=== PATIENT | male | born 1985 | race American Indian/Alaskan Native ===

== ENCOUNTER 2017-01-29 18:52 | Emergency (ER) | payer SELFPAY ==
--- NOTE | 2017-01-30 00:42 | Emergency Department Report ---
HPI - General Chief Complaint: Back Pain/Injury Time Seen by Provider: 01/30/17 00:18 - HPI HPI: 31-year-old male presents today complaining of lower back pain 1 month that has worsened 3 days ago. Patient states that he has history of similar symptoms and has been worked up for it, without abnormal imaging. Describes his pain as a 10 out of 10 sharp, throbbing pain. Patient states that it does radiate to his right hip. 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 Tried aspirin and ibuprofen without relief. Denies numbness, weakness, paresthesias. Denies bowel or bladder incontinence. Denies fever, chills, nausea, vomiting, chest pain, shortness of breath, abdominal pain. ED Past Medical Hx - Past Medical History Previous Medical History?: No - Surgical History Past Surgical History?: No - Social History Smoking Status: Never Smoker Substance Use Type: None - Medications Home Medications: Home Medications Medication Instructions Recorded Confirmed Last Taken Type Cyclobenzaprine [Flexeril] 10 mg PO TID PRN #15 tablet 01/30/17 Unknown Rx Naproxen [Naprosyn] 500 mg PO BID #20 tablet 01/30/17 Unknown Rx ED Review of Systems ROS: Stated complaint: BACK PAIN Other details as noted in HPI Constitutional: denies: chills, fever, malaise Eyes: denies: eye pain ENT: denies: ear pain, throat pain, congestion Respiratory: denies: cough, shortness of breath, wheezing Cardiovascular: denies: chest pain, palpitations Endocrine: no symptoms reported Gastrointestinal: denies: abdominal pain, nausea, vomiting Musculoskeletal: back pain Neurological: denies: headache, weakness, numbness, paresthesias Physical Exam - Physical Exam Vital Signs: Vital Signs 01/29/17 19:47 Temperature 98.1 F Pulse Rate 76 Respiratory 20 Rate Blood Pressure 151/82 [Right] O2 Sat by Pulse 97 Oximetry Physical Exam: GENERAL: The patient is well-developed and well-nourished. Patient is in NAD. HEAD: Normocephalic. Atraumatic. EYES: Extraocular motions are intact, PERRL. NECK: Supple, nontender, without lymphadenopathy. No meningitic signs are noted. CHEST/LUNGS: Clear to auscultation throughout. HEART/CARDIOVASCULAR: Regular rate and rhythm. No murmurs, rubs or gallops. ABDOMEN: Abdomen is soft, nontender. Bowel sounds normoactive. No guarding or rebound tenderness. EXTREMITIES: No cyanosis, clubbing or edema. Peripheral pulses intact. Capillary refill less than 2 seconds. BACK: Full ROM. Minimal midline tenderness of the lumbar region. Bilateral paraspinal tenderness of lumbar region. Tenderness to palpation of the right sciatic notch. Negative straight leg raise bilaterally. NEURO: Alert and oriented x 3. Normal gait. ED Course Vital Signs 01/29/17 19:47 Temperature 98.1 F Pulse Rate 76 Respiratory 20 Rate Blood Pressure 151/82 [Right] O2 Sat by Pulse 97 Oximetry ED Medical Decision Making - Lab Data Vital Signs 01/29/17 01/30/17 19:47 00:44 Temperature 98.1 F 98.3 F Pulse Rate 76 58 L Respiratory 20 18 Rate Blood Pressure 151/82 132/95 [Right] O2 Sat by Pulse 97 100 Oximetry - Medical Decision Making 31-year-old male presents today complaining of lower back pain that worsened 3 days ago. Patient has history of similar symptoms and has been worked up. Patient is in no acute distress at this time. He will be discharged home and is encouraged to follow up with a primary care provider. He will be sent home on Flexeril and naproxen and is encouraged to return to the emergency room for any worsening symptoms. Critical care attestation.: If time is entered above; I have spent that time in minutes in the direct care of this critically ill patient, excluding procedure time. ED Disposition Clinical Impression: Low back pain Qualifiers: Chronicity: acute Back pain laterality: bilateral Sciatica presence: with sciatica Sciatica laterality: sciatica of right side Qualified Code(s): M54.41 - Lumbago with sciatica, right side Disposition: - TO HOME OR SELFCARE Is pt being admited?: No Does the pt Need Aspirin: No Condition: Stable Instructions: Low Back Strain (ED), Sciatica (ED) Additional Instructions: Follow with primary care provider or orthopedic. Return to the emergency department if symptoms worsen. Prescriptions: Cyclobenzaprine [Flexeril] 10 mg PO TID PRN #15 tablet PRN Reason: Muscle Spasm Naproxen [Naprosyn] 500 mg PO BID #20 tablet Referrals: RENETTA FORDE MD [Primary Care Provider] - 3-5 Days ROWENA BROWN MD [Staff Physician] - 3-5 Days Forms: Work/School Release Form(ED) Time of Disposition: 00:49
[2017-01-30 00:45] VITALS: BP 132/95
== END 2017-01-30 01:02 | disposition home or self-care (01) ==
LOC: ED 18:52
DX: M54.5 Low back pain (principal)
CPT/HCPCS: 99282

== ENCOUNTER 2019-07-20 04:51 | Emergency (ER) | payer SELFPAY ==
[2019-07-20 04:57] VITALS: BP 142/95
[2019-07-20] MEDS ORDERED: DIPHtheria,PERTUSSIS(ACELL),TETANUS VACCINE/PF 0.5 ML VIAL IM ONE (05:19)
[2019-07-20] MEDS ORDERED: LIDOCAINE-MPF (1%) 10 MG/1 ML VIAL 5 ML INFILTRATI ONE (05:19)
[2019-07-20] MEDS ORDERED: HYDROcodone/ACETAMINOPHEN 5-325 MG TAB PO ONE (05:20)
--- NOTE | 2019-07-20 06:10 | Emergency Department Report ---
- General Chief Complaint: Laceration/Recheck/Suture Stated Complaint: RIGHT HAND CUT Time Seen by Provider: 07/20/19 05:14 Source: patient Mode of arrival: Ambulatory Limitations: No Limitations - History of Present Illness Initial Comments: Mr Alcocer is a 3 y/o aam who presents for right hand laceration , states he slipped and fell into hs bathroom mirror this am. cause him to cut his hand on ther mirrror. all bleeding is controlled via direct pressure. there is no numbness , no tingling, no paralysis, and no deformity,Last tetanus is unkown. pt states minimal pain of 2/10 exacerbated by palpation, Rom is intact and unrestricted. There are no foreign bodies noted or reported Onset/Timin -: hour(s) Extremity Location: Right: Hand Place: home Patient Tetanus UTD: No Context: accidental Associated Symptoms: pain - Related Data Previous Rx's Medication Instructions Recorded Last Taken Type Cyclobenzaprine [Flexeril] 10 mg PO TID PRN #15 tablet 01/30/17 Unknown Rx Naproxen [Naprosyn] 500 mg PO BID #20 tablet 01/30/17 Unknown Rx Ibuprofen [Motrin 600 MG tab] 600 mg PO Q8H #15 tablet 03/15/18 Unknown Rx Neomy/Polymyx B/Hc (Otic) Soln 4 drops OTIC TID 10 Days #1 bottle 03/15/18 Unknown Rx [Cortisporin (Otic) Soln] cephALEXin [Keflex] 500 mg PO TID 7 Days #21 cap 07/20/19 Unknown Rx traMADoL [Ultram] 50 mg PO Q6HR PRN #12 tablet 07/20/19 Unknown Rx Allergies Allergy/AdvReac Type Severity Reaction Status Date / Time No Known Allergies Allergy Verified 11/21/15 01:53 ED Review of Systems ROS: Stated complaint: RIGHT HAND CUT Other details as noted in HPI Constitutional: denies: chills, fever Eyes: denies: eye pain, eye discharge, vision change ENT: denies: ear pain, throat pain Respiratory: denies: cough, shortness of breath, wheezing Cardiovascular: denies: chest pain, palpitations Endocrine: no symptoms reported Gastrointestinal: denies: abdominal pain, nausea, diarrhea Genitourinary: as per HPI Musculoskeletal: denies: back pain, joint swelling, arthralgia Skin: other (laceratoin right hand ). denies: rash, lesions Neurological: denies: headache, weakness, paresthesias Psychiatric: denies: anxiety, depression Hematological/Lymphatic: denies: easy bleeding, easy bruising ED Past Medical Hx - Past Medical History Previous Medical History?: No - Surgical History Past Surgical History?: No - Social History Smoking Status: Current Every Day Smoker - Medications Home Medications: Home Medications Medication Instructions Recorded Confirmed Last Taken Type Cyclobenzaprine [Flexeril] 10 mg PO TID PRN #15 tablet 01/30/17 Unknown Rx Naproxen [Naprosyn] 500 mg PO BID #20 tablet 01/30/17 Unknown Rx Ibuprofen [Motrin 600 MG tab] 600 mg PO Q8H #15 tablet 03/15/18 Unknown Rx Neomy/Polymyx B/Hc (Otic) Soln 4 drops OTIC TID 10 Days #1 bottle 03/15/18 Unknown Rx [Cortisporin (Otic) Soln] cephALEXin [Keflex] 500 mg PO TID 7 Days #21 cap 07/20/19 Unknown Rx traMADoL [Ultram] 50 mg PO Q6HR PRN #12 tablet 07/20/19 Unknown Rx ED Physical Exam - General Limitations: No Limitations General appearance: alert, in no apparent distress - Head Head exam: Present: atraumatic, normocephalic - Eye Eye exam: Present: normal appearance - ENT ENT exam: Present: mucous membranes moist - Neck Neck exam: Present: normal inspection - Respiratory Respiratory exam: Present: normal lung sounds bilaterally. Absent: respiratory distress - Cardiovascular Cardiovascular Exam: Present: regular rate, normal rhythm, normal heart sounds. Absent: systolic murmur, diastolic murmur, rubs, gallop - GI/Abdominal GI/Abdominal exam: Present: soft, normal bowel sounds - Rectal Rectal exam: Present: deferred - Extremities Exam Extremities exam: Present: normal inspection, full ROM, normal capillary refill. Absent: tenderness, joint swelling - Back Exam Back exam: Present: normal inspection, full ROM. Absent: tenderness - Neurological Exam Neurological exam: Present: alert, oriented X3, CN II-XII intact, normal gait - Psychiatric Psychiatric exam: Present: normal affect, normal mood - Skin Skin exam: Present: warm, dry, intact, normal color. Absent: rash ED Course Vital Signs 07/20/19 04:55 Temperature 97.9 F Pulse Rate 91 H Respiratory 20 Rate Blood Pressure 142/95 [Left] O2 Sat by Pulse 100 Oximetry - Laceration /Wound Repair Right Dorsal Hand Wound Location: upper extremity (right dorsa hand and finger small less than 1 cm ) Wound Length (cm): 1 Wound's Depth, Shape: superficial Wound Explored: clean Irrigated w/ Saline (ccs): 30 Betadine Prep?: Yes Anesthesia: 1% Lidocaine Volume Anesthetic (ccs): 1 Wound Debrided: minimal Wound Repaired With: sutures Suture Size/Type: 4:0, proline Number of Sutures: 3 Layer Closure?: No Sterile Dressing Applied?: Yes Progress: wound cleaned with betadine solution, anesthesia with 1% lidocaine, plain, wound irrigated with 30 cc sterile saline, wound explored manually and full rom no foreignbody noted , wound closed with 4.0 prolene x 3 sutures, steristrip and skin adhesive, all bleeding is controlled pt tolerated procedure with minimal distress, pt given wound instructions including symptoms of infection and when to return to ed for suture removal. Critical care attestation.: If time is entered above; I have spent that time in minutes in the direct care of this critically ill patient, excluding procedure time. ED Disposition Clinical Impression: Laceration of hand Qualifiers: Encounter type: initial encounter Foreign body presence: without foreign body Laterality: right Qualified Code(s): S61.411A - Laceration without foreign body of right hand, initial encounter Disposition: - TO HOME OR SELFCARE Is pt being admited?: No Does the pt Need Aspirin: No Condition: Stable Instructions: Laceration (ED) Prescriptions: cephALEXin [Keflex] 500 mg PO TID 7 Days #21 cap traMADoL [Ultram] 50 mg PO Q6HR PRN #12 tablet PRN Reason: Pain Referrals: CHRISTIANO LEMONS MD [Staff Physician] - 3-5 Days Forms: Work/School Release Form(ED) Time of Disposition: 06:16
== END 2019-07-20 06:25 | disposition home or self-care (01) ==
LOC: ED 04:51
DX: S61.411A Laceration without foreign body of right hand, initial encounter (principal); F17.200 Nicotine dependence, unspecified, uncomplicated; Z79.1 Long term (current) use of non-steroidal anti-inflammatories (NSAID); Z79.899 Other long term (current) drug therapy; W01.0XXA Fall on same level from slipping, tripping and stumbling without subsequent striking against object, initial encounter; Y93.89 Activity, other specified; Y92.89 Other specified places as the place of occurrence of the external cause; Y99.8 Other external cause status
CPT/HCPCS: 90471; 90715

== ENCOUNTER 2021-05-01 18:36 | Emergency (ER) | payer SELFPAY ==
[2021-05-01 18:44] VITALS: BP 145/100
== END 2021-05-02 18:46 | disposition left against medical advice (07) ==
LOC: ED 18:36
DX: K08.89 Other specified disorders of teeth and supporting structures (principal); Z53.21 Procedure and treatment not carried out due to patient leaving prior to being seen by health care provider